=== PATIENT | female | born 1980 | race Caucasian/White ===

== ENCOUNTER → 2020-10-27 | Day surgery (SDC) | payer MEDICAID ==
[~2020-10-27] VITALS: Ht 162.6 cm; Wt 83.5 kg
[~2020-10-27] MED LIST: ALBUAER3 IN; ATOM80CA PO; BUPIVACAINE 0.5% MPF INJ 30ML SDV IJ ONE; ETAN50IN10 SC; FLUT1AER6 IN; HYDROmorphone HCL 2 MG/ML VL IV PRN; LAMO100T44 PO; LIDOCAINE 1% HCL (LOCAL ANESTH.) INJ 20ML MDV ONE; MIDAZOLAM HCL 1MG/1ML-2 ML VIAL ONE; ONDANSETRON HCL 4 MG/2 ML VIAL IV PRN; ONDANSETRON HCL 4 MG/2 ML VIAL ONE; PROPOFOL 10 MG/ML 20 ML IV ONE; VENL150T26 PO; ceFAZolin 1GM/50ML 100 ML IV ONE; fentaNYL CITRATE 100 MCG/2 ML VL ONE
[2020-10-27 13:25] VITALS: BP 159/93
== END | disposition home or self-care (01) ==
LOC: SUR 07:54
PROVIDERS: ATTEND Podiatrist
DX: M20.11 Hallux valgus (acquired), right foot (principal); M21.611 Bunion of right foot; M21.621 Bunionette of right foot; J45.909 Unspecified asthma, uncomplicated; G89.29 Other chronic pain; F31.89 Other bipolar disorder; M19.90 Unspecified osteoarthritis, unspecified site; Z20.822 Contact with and (suspected) exposure to COVID-19; Z98.890 Other specified postprocedural states; Z79.899 Other long term (current) drug therapy; Z88.8 Allergy status to other drugs, medicaments and biological substances; Z68.31 Body mass index [BMI] 31.0-31.9, adult
CPT/HCPCS: 28296; 28308; 73620; 81025; C1713; J0690; J2001; J2250; J2405; J2704; J3010; J3490; U0003; 76001